=== PATIENT | male | born 1955 | race Caucasian/White ===

== ENCOUNTER 2018-08-28 12:24 | Day surgery (SDC) | payer MEDICAID ==
[~2018-08-28] VITALS: Ht 172.7 cm; Wt 108.2 kg
[~2018-08-28 12:24] MED LIST: LIDOCAINE/PF 2% 5 ML VIAL INJ ONE; PROPOFOL 1% 20 ML VIAL IVP ONE
[2018-08-28] MEDS ORDERED: SODIUM CHLORIDE 0.9% 1,000 ML IV ONE ×2 (12:52→13:00)
[2018-08-28 13:09] LABS: GLUCOMETER DEV NAME(LOC) SDS.; GLUCOSE,POINT OF CARE 207 MG/DL (70-110)
[2018-08-28] MEDS ORDERED: ASPI81 PO (13:43)
[2018-08-28] MEDS ORDERED: LISI-661 PO (13:43)
[2018-08-28] MEDS ORDERED: INSLAN SQ (13:43)
[2018-08-28] MEDS ORDERED: HYDR25TA PO (13:43)
[2018-08-28] MEDS ORDERED: METF-960 PO (13:43)
== END 2018-08-28 16:45 | disposition home or self-care (01) ==
LOC: SURGERY 12:24
PROVIDERS: ATTEND Student in an Organized Health Care Education/Training Program
DX: K62.1 Rectal polyp (principal); K57.30 Diverticulosis of large intestine without perforation or abscess without bleeding; K64.8 Other hemorrhoids; K63.89 Other specified diseases of intestine; E66.9 Obesity, unspecified; E78.5 Hyperlipidemia, unspecified; I10 Essential (primary) hypertension; E11.9 Type 2 diabetes mellitus without complications; F17.210 Nicotine dependence, cigarettes, uncomplicated; Z98.890 Other specified postprocedural states; Z79.82 Long term (current) use of aspirin; Z79.899 Other long term (current) drug therapy
CPT/HCPCS: 45380; 82962; 88305; C1769; J2704; J3490; J7030

== ENCOUNTER 2018-09-11 10:46 | Day surgery (SDC) | payer MEDICAID ==
[~2018-09-11] VITALS: Ht 172.7 cm; Wt 107.7 kg
[~2018-09-11 10:46] MED LIST changes: +ASPI81 PO; +HYDR25TA PO; +INSLAN SQ; -LIDOCAINE/PF 2% 5 ML VIAL INJ ONE; +LISI-661 PO; +METF-960 PO; -PROPOFOL 1% 20 ML VIAL IVP ONE; +SODIUM CHLORIDE 0.9% 1,000 ML IV ONE
[2018-09-11] MEDS ORDERED: PROPOFOL 1% 20 ML VIAL IVP ONE (10:47)
[2018-09-11] MEDS ORDERED: LIDOCAINE/PF 2% 5 ML SYRINGE IVP ONE (10:47)
[2018-09-11] MEDS ORDERED: SODIUM CHLORIDE 0.9% 1,000 ML IV ONE (11:00)
[2018-09-12 06:04] LABS: GLUCOMETER DEV NAME(LOC) SDS.; GLUCOSE,POINT OF CARE 210 MG/DL (70-110)
== END 2018-09-11 15:05 | disposition home or self-care (01) ==
LOC: SURGERY 10:46 → EDUNIT# 13:00 → SURGERY 15:05
PROVIDERS: ATTEND Student in an Organized Health Care Education/Training Program
DX: K29.50 Unspecified chronic gastritis without bleeding (principal); K21.0 Gastro-esophageal reflux disease with esophagitis; K29.80 Duodenitis without bleeding; K31.89 Other diseases of stomach and duodenum; K44.9 Diaphragmatic hernia without obstruction or gangrene; E66.9 Obesity, unspecified; E11.9 Type 2 diabetes mellitus without complications; F17.210 Nicotine dependence, cigarettes, uncomplicated; E78.5 Hyperlipidemia, unspecified; Z98.890 Other specified postprocedural states; Z79.4 Long term (current) use of insulin
CPT/HCPCS: 43239; 82962; 88305; 88312; 88313; C1769; J2704; J3490; J7030